=== PATIENT | male | born 1990 | race Two or more races ===

== ENCOUNTER 2018-12-28 15:48 | Emergency (ER) | payer OTHER ==
[2018-12-28] VITALS (9 sets, daily range): BP systolic 132–171; BP diastolic 74–103
[~2018-12-28] VITALS: Ht 177.8 cm; Wt 95.3 kg
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
[2018-12-28] MEDS ORDERED: Ketorolac 30mg Inj ONE (15:59)
[2018-12-28] MEDS ORDERED: Morphine Sulfate 4mg/ml Inj (IV/IM USE ONLY) ONE (15:59)
[2018-12-28] MEDS ORDERED: Ketorolac 30mg Inj IM ONE (16:00)
[2018-12-28] MEDS ORDERED: Morphine Sulfate 4mg/ml Inj (IV/IM USE ONLY) IM ONE (16:00)
[2018-12-28] MEDS ORDERED: oxyCODONE HCL/Acetaminophen 5/325mg ORAL ONE (16:00)
--- NOTE | 2018-12-28 16:00 | NUR ---
ED Nurse Note: [employer] AT BEDSIDE
--- NOTE | 2018-12-28 16:09 | NUR ---
ED Nurse Note: [facility] AT BEDSIDE
--- NOTE | 2018-12-28 17:11 | Diagnostic Imaging Report ---
EXAM: XR Right Wrist Complete, 3 or More Views CLINICAL HISTORY: PAIN TECHNIQUE: Frontal, lateral and oblique views of the right wrist. COMPARISON: No relevant prior studies available. FINDINGS: Bones/joints: Acute overriding fracture of the distal radius with distal fracture fragment displaced dorsally by approximately 11 mm. Probable acute fracture of the ulnar styloid. No dislocation. Soft tissues: Unremarkable. No radiopaque foreign body. IMPRESSION: 1. Acute overriding fracture of the distal radius with distal fracture fragment displaced dorsally by approximately 11 mm. 2. Probable acute fracture of the ulnar styloid.
--- NOTE | 2018-12-28 17:11 | Diagnostic Imaging Report ---
EXAM: XR Right Hand Complete, 3 or More Views CLINICAL HISTORY: PAIN TECHNIQUE: Frontal, lateral and oblique views of the right hand. COMPARISON: No relevant prior studies available. FINDINGS: Bones/joints: Acute overriding fracture of the distal radius with distal fracture fragment displaced dorsally by approximately 11 mm. Probable acute fracture of the ulnar styloid. No dislocation. Soft tissues: Unremarkable. No radiopaque foreign body. IMPRESSION: 1. Acute overriding fracture of the distal radius with distal fracture fragment displaced dorsally by approximately 11 mm. 2. Probable acute fracture of the ulnar styloid.
[2018-12-28] MEDS ORDERED: KETAMINE HCL IM ONE (17:30)
[2018-12-28] MEDS ORDERED: Morphine Sulfate 4mg/ml Inj (IV/IM USE ONLY) IVP ONE (18:30)
--- NOTE | 2018-12-28 19:50 | NUR ---
ED Nurse Note: RN pulled out ketamine from pyxis and given by Dr Lamar IVP for procedural sedation for reduction of right radius fracture.
--- NOTE | 2018-12-28 19:50 | NUR ---
ED Nurse Note: Perform Ketamine sedation by ERMD, record and monitor by 2 RN at bedside. Pt AO x 4times before sedation and understood well procedure. Will monitor Pt's VS Q 5 minutes after procedure done.
--- NOTE | 2018-12-28 20:20 | NUR ---
HAND-OFF: Report given to Kvng DUMONT.
--- NOTE | 2018-12-28 20:30 | NUR ---
ED Nurse Note: Pt awaked and respond conversation well, AO x 3times. Family is on bedside, continue monitor.
--- NOTE | 2018-12-28 20:45 | NUR ---
ED Nurse Note: Pt fully awaked and answer all the question well, VSS, on room air no distress. Family is on bedside.
--- NOTE | 2018-12-28 20:51 | Diagnostic Imaging Report ---
EXAM: XR Right Wrist Complete, 3 or More Views CLINICAL HISTORY: PAIN TECHNIQUE: Frontal, lateral and oblique views of the right wrist. COMPARISON: X-ray wrist dated 12/28/2018 FINDINGS: Bones/joints: Improved alignment of the previously described distal radial fracture with minimal dorsal displacement of the distal fracture fragment. Ulnar styloid fracture is not seen well secondary to overlying soft tissue casting material. Soft tissues: Unremarkable. No radiopaque foreign body. IMPRESSION: 1. Improved alignment of the previously described distal radial fracture with minimal dorsal displacement of the distal fracture fragment. 2. Ulnar styloid fracture is not seen well secondary to overlying soft tissue casting material.
[2018-12-28] MEDS ORDERED: KETAMINE HCL IV ONE (21:00)
[2018-12-28] MEDS ORDERED: NORCO 5-325 TA1 EACH ORAL (21:01)
[2018-12-28] MEDS ORDERED: ROBAXIN500 MG PO (21:02)
--- NOTE | 2018-12-28 21:30 | NUR ---
ER DISCHARGE NOTE: Patient is cleared to be discharged per ERMD, pt is aox4, on room air, with stable vital signs. pt's family was given dc and prescription instructions, pt was able to verbalize understanding, pt id band and iv site removed without complications. pt is in wheel chair out of unit, and got into the car all safe. pt's family took all belongings.
== END 2018-12-28 21:30 | disposition home or self-care (01) ==
LOC: EDBD 15:48 → EMR 18:24
DX: S52.501A Unspecified fracture of the lower end of right radius, initial encounter for closed fracture (principal); S52.611A Displaced fracture of right ulna styloid process, initial encounter for closed fracture; V43.52XA Car driver injured in collision with other type car in traffic accident, initial encounter; Y92.410 Unspecified street and highway as the place of occurrence of the external cause
CPT/HCPCS: 25605; 73110; 73130; 96372; 96374; 96375; 99284; J1885; J2270; J2405